=== PATIENT | female | born 1990 | race Caucasian/White ===

== ENCOUNTER → 2017-02-04 20:30 | Emergency (ER) | payer OTHER ==
[~2017-02-04 20:30] MED LIST: BACITRACIN15 GM OINT; BACITRACIN15 GM OINT TOP; CIPRO PO; FLEXERIL PO; FLINTSTONES T100 MCG PO; IBUPROFEN PO; NO MEDICATIONS; ULTRAM PO
== END | disposition home or self-care (01) ==
LOC: CED 20:30
DX: L02.411 Cutaneous abscess of right axilla (principal); F17.200 Nicotine dependence, unspecified, uncomplicated; Z88.8 Allergy status to other drugs, medicaments and biological substances
CPT/HCPCS: 99282; 99283